=== PATIENT | male | born 1980 | race Caucasian/White ===

== ENCOUNTER 2024-11-14 07:21 | Emergency (ER) | payer OTHER, SELFPAY ==
[2024-11-14 07:35] VITALS: BP 148/88; PULSE 78; TEMP 36.6; O2SAT 99; BMI 21.8
--- NOTE | 2024-11-14 07:50 | XR_ITS ---
The [address] [address] Patient Name: BEATRIZ CHAMPION MRN: [id number] date: 1980 Sex: M Assigned Patient Location: ER Current Patient Location: ER Accession/Order Number: [id number] Exam Date: 11/14/2024 08:30 Report Date: 11/14/2024 08:33 At the request of: PRASANNA GILMORE MD Procedure: XR foot UMA 2V BILATERAL FEET - 2 views each COMPARISON: None CLINICAL DATA: Patient walked a lot yesterday and now has bilateral foot pain. AP and lateral views were obtained. No acute fractures or dislocation are noted. No focal soft tissue swelling is seen. XR/XR foot UMA 2V IMPRESSION: NO ACUTE BONY FINDINGS. Impression dictated by: Sherley Clifton M.D. 11/14/2024 8:33 AM Dictation Location: [place] [address] Electronically authenticated by: [id number] Y Date: 11/14/2024 08:33
[2024-11-14] MEDS: OXYCODONE HCL/ACETAMINOPHEN 5MG/325MG 1 TAB PO (08:07)
[2024-11-14] MEDS: KETOROLAC TROMETHAMINE 30 MG/ML VIAL IM (08:07)
--- NOTE | 2024-11-14 11:19 | ED_ITS ---
HPI - Extremity Problem General Chief complaint: Extremity Problem, Nontraumatic Stated complaint: lower extremity pain - feet Time Seen by Provider: 11/14/24 07:40 Source: patient Mode of arrival: walk-in History of Present Illness HPI Narrative: The patient is coming today with a bilateral foot pain that he had in the last few hours after he had to walk 27 miles after his car broke out, the patient mentioned that he had a previous surgeries in his calcaneus due to fracture and he is worried that he had some issues after all this walking He took some ibuprofen before arrival and it did not help his pain Related Data Previous Rx's ?Medication ?Instructions ?Recorded diclofenac sodium 75 mg 75 mg PO BID PRN pain #20 ta bs 11/14/24 tablet,delayed release Allergies Allergy/AdvReac Type Severity Reaction Status Date / Time No Known Drug Allergies Allergy Verified 11/14/24 07:40 Review of Systems ROS Status of ROS 10 or more systems reviewed and unremark able except as noted in history and below PFSH PFSH Social History Little interest or pleasure in doing things: not at all Feeling down, depressed, or hopeless: not at all Exam Narrative Exam Narrative: Nurses notes and vital signs reviewed and patient is not hypoxic. Lower extremity exam: The patient have tenderness upon palpation of the heel bilaterally but the patient have no redness no hotness no swelling and no ten derness on palpation of the bony prominences General: Well-appearing and in no apparent distress. Skin: Warm, dry, no pallor noted. No rash. Head: Normocephalic, atraumatic. Neck: Supple, non-tender. Cardiovascular: Regular Rate and Rhythm without murmur, gallop or rub. Respiratory: No accessory muscle use or respiratory distress. Lungs are clear to auscultation, no wheezing, rales or rhonchi Chest Wall: no tenderness Back: No midline thoracic or lumbar vertebral tenderness. No CVA tenderness GI: Abdomen is soft, non-distended. Normal bowel sounds. No masses appreciated. No tenderness to palpation. No rebound, guarding, or rigidity noted. Neurological: A&O x4. No cranial nerve dysfunction observed. No truncal ataxia. Moves all extremities. Sensation intact. Psychiatric: Cooperative and interactive. Normal mood and affect. Constitutional Vital Signs, click to edit/add: Last Vital Signs Temp 97.8 F 11/14/24 07:35 Pulse 78 11/14/24 07:35 Resp 18 11/14/24 07:35 BP 148/88 H 11/14/24 07:35 Pulse Ox 99 11/14/24 07:35 O2 Del Method Room Air 11/14/24 07:35 Course Vital Signs Vital signs: Vital Signs Temperature 97.8 F 11/14/24 07:35 Pulse Rate 78 11/14/24 07:35 Respiratory Rate 18 11/14/24 07:35 Blood Pressure 148/88 H 11/14/24 07:35 Pulse Oximetry 99 11/14/24 07:35 Oxygen Delivery Method Room Air 11/14/24 07:35 Temperature 97.8 F 11/14/24 07:35 Pulse Rate 78 11/14/24 07:35 Respiratory Rate 18 11/14/24 07:35 Blood Pressure 148/88 H 11/14/24 07:35 Pulse Oximetry 99 11/14/24 07:35 Oxygen Delivery Method Room Air 11/14/24 07:35 MDM - Extremity (Nontraumatic) MDM Narrative Medical decision making narrative: X-ray of the foot bilaterally showed no acute pathology Patient was discharged home with Voltaren for pain control after he was treated in the ER with Toradol He also was provided with 1 pill of Percocet here to help controlling his pain before getting discharged The patient is to follow up with primary care physician in next 2-3 days or to return to the emergency department should any of the signs or symptoms worsen or new symptoms develop. The patient agrees with the following Diagnosis and Treatment plan and the patient will be discharged home. Discharge Plan Discharge Chief Complaint: Extremity Problem, Nontraumatic Clinical Impression: Foot pain Qualifiers: Laterality: bilateral Qualified Code(s): M79.671 - Pain in right foot Patient Disposition: Home, Self-Care Time of Disposition Decision: 08:39 Condition: Good Mode of Transportation: Private Vehicle Prescriptions / Home Meds: New diclofenac sodium 75 mg tablet,delayed release (DR/EC) 75 mg PO BID PRN (Reason: pain) Qty: 20 0RF Print Language: Spanish Instructions: Arthralgia (ED) Referrals: Physician,Non-Staff, MD [Primary Care Provider] - 1 week Discharge Date/Time: 11/14/24 08:50
== END 2024-11-14 08:50 | disposition home or self-care (01) ==
PROVIDERS: Emergency Provider Emergency Medicine
DX: M79.671 Pain in right foot (principal); M79.672 Pain in left foot
CPT/HCPCS: 73620; 96372; 99284; J1885

== ENCOUNTER 2024-12-29 17:17 | Emergency (ER) | payer OTHER, SELFPAY ==
[2024-12-29 17:25] VITALS: BP 160/82; PULSE 73; TEMP 36.6; O2SAT 99; BMI 23.0
[2024-12-29] MEDS: PENICILLIN V POTASSIUM 250 MG TABLET 500 MG PO (18:04)
[2024-12-29] MEDS: OXYCODONE HCL/ACETAMINOPHEN 5MG/325MG 1 TAB PO ×2 (18:04)
--- NOTE | 2024-12-29 18:13 | ED.DENTAL1 ---
HPI - Dental/Oral General Chief complaint: Dental/Oral Stated complaint: DENTAL Time Seen by Provider: 12/29/24 17:28 Source: patient Mode of arrival: walk-in Limitations: no limitations History of Present Illness HPI Narrative: 44-year-old male to the emergency department chief complaint of left upper dental pain. He reports that he has bad teeth currently following up with dentistry. Pain suddenly became worse over the last 48 hours. He is concerned about dental infection. Related Data Home Medications ?Medication ?Instructions ?Recorded ?Confirmed esomeprazole magnesium 40 mg 40 mg PO BID 12/29/24 12/29/24 capsule,delayed release (Nexium) lisdexamfetamine 70 mg capsule 70 mg PO DAILY 12/29/24 12/29/24 (Vyvanse) lisinopril 40 mg tablet 40 mg PO DAILY 12/29/24 12/29/24 Previous Rx's ?Medication ?Instructions ?Recorded diclofenac sodium 75 mg 75 mg PO BID PRN pain #20 tabs 11/14/24 tablet,delayed release oxycodone-acetaminophen 5 mg-325 1 tab PO Q6H PRN pain 3 days #12 12/29/24 mg tablet (Percocet) tabs penicillin V potassium 500 mg 500 mg PO Q6H 7 days #28 tabs 12/29/24 tablet Allergies Allergy/AdvReac Type Severity Reaction Status Date / Time No Known Drug Allergies Allergy Verified 12/29/24 17:24 Review of Systems ROS Status of ROS 10 or more systems reviewed and unremarkable except as noted in history and below PFSH PFSH Social History Little interest or pleasure in doing things: not at all Feeling down, depressed, or hopeless: not at all Exam Narrative Exam Narrative: VITALS: I have reviewed the triage vital signs. GENERAL: Well developed, well appearing adult in no acute distress. NEURO: Alert and oriented. Moves all extremities. Face is symmetric and expressive. EYES: PERRL. No scleral icterus or conjunctival injection. No discharge. HENT: Normocephalic, atraumatic. Hearing is grossly intact. Nares grossly patent and without discharge. Mucous membranes moist. Generally poor dentition. What I believe is tooth #12 has significant decay, gingival erythema. No discrete abscess. NECK: No JVD. Patient moves neck without restriction. EXTREMITIES: Symmetric muscle bulk. No joint swelling. No clubbing, cyanosis, or deformity. SKIN: Warm and dry. Normal turgor. No rash or lesions appreciated. PSYCH: Mood, affect, and interaction is appropriate to the setting. Constitutional Vital Signs, click to edit/add: Last Vital Signs Temp 97.8 F 12/29/24 17:25 Pulse 73 12/29/24 17:25 Resp 14 12/29/24 17:25 BP 160/82 H 12/29/24 17:25 Pulse Ox 99 12/29/24 17:25 O2 Del Method Room Air 12/29/24 17:25 Course Vital Signs Vital signs: Vital Signs Temperature 97.8 F 12/29/24 17:25 Pulse Rate 73 12/29/24 17:25 Respiratory Rate 14 12/29/24 17:25 Blood Pressure 160/82 H 12/29/24 17:25 Pulse Oximetry 99 12/29/24 17:25 Oxygen Delivery Method Room Air 12/29/24 17:25 Temperature 97.8 F 12/29/24 17:25 Pulse Rate 73 12/29/24 17:25 Respiratory Rate 14 12/29/24 17:25 Blood Pressure 160/82 H 12/29/24 17:25 Pulse Oximetry 99 12/29/24 17:25 Oxygen Delivery Method Room Air 12/29/24 17:25 MDM - Dental/Oral MDM Narrative Medical decision making narrative: Patient with generally poor dentition. The tooth in question has had gingival erythema. He has a significant amount of discomfort. Percocet for pain. OARRS reviewed. Penicillin. Follow-up with his dentist. Patient agrees with this plan. Discharge Plan Discharge Chief Complaint: Dental/Oral Clinical Impression: Toothache Patient Disposition: Home, Self-Care Time of Disposition Decision: 17:54 Condition: Good Mode of Transportation: Private Vehicle Prescriptions / Home Meds: New penicillin V potassium 500 mg tablet 500 mg PO Q6H 7 Days Qty: 28 0RF oxycodone-acetaminophen [Percocet] 5-325 mg tablet 1 tab PO Q6H PRN (Reason: pain) 3 Days Qty: 12 0RF No Action diclofenac sodium 75 mg tablet,delayed release (DR/EC) 75 mg PO BID PRN (Reason: pain) Qty: 20 0RF lisinopril 40 mg tablet 40 mg PO DAILY esomeprazole magnesium [Nexium] 40 mg capsule,delayed release(DR/EC) 40 mg PO BID lisdexamfetamine [Vyvanse] 70 mg capsule 70 mg PO DAILY Print Language: Maltese Instructions: Toothache (ED), Opioid Safety (ED), Safe Disposal of Opioids (ED) Additional Instructions: Follow-up with your dentist as planned. Referrals: Physician,Non-Staff, MD [Primary Care Provider] - 1 week Discharge Date/Time: 12/29/24 18:08
== END 2024-12-29 18:08 | disposition home or self-care (01) ==
PROVIDERS: Emergency Provider Student in an Organized Health Care Education/Training Program
DX: K08.89 Other specified disorders of teeth and supporting structures (principal)
CPT/HCPCS: 99283

== ENCOUNTER 2025-01-27 13:08 | Emergency (ER) | payer OTHER, SELFPAY ==
[2025-01-27 13:30] VITALS: BP 148/85; PULSE 91; TEMP 37; O2SAT 99; BMI 21.6
--- NOTE | 2025-01-27 14:01 | ED.DENTAL1 ---
HPI - Dental/Oral General Chief complaint: Dental/Oral Stated complaint: DENTAL PAIN Time Seen by Provider: 01/27/25 13:33 Source: patient Mode of arrival: walk-in Limitations: no limitations History of Present Illness HPI Narrative: 44 year old male presents to the ED for upper dental pain. It has been an ongoing issue, worse the past few days. Tylenol and Motrin have not been helping. States his dentist appointment from last month had to be rescheduled. States he is to have all of his teeth extracted. Denies fever, chills, injury, SOB, difficulty swallowing. Related Data Home Medications ?Medication ?Instructions ?Recorded ?Confirmed esomeprazole magnesium 40 mg 40 mg PO BID 12/29/24 01/27/25 capsule,delayed release (Nexium) lisdexamfetamine 70 mg capsule 70 mg PO DAILY 12/29/24 01/27/25 (Vyvanse) lisinopril 40 mg tablet 40 mg PO DAILY 12/29/24 01/27/25 Previous Rx's ?Medication ?Instructions ?Recorded diclofenac sodium 75 mg 75 mg PO BID PRN pain #20 tabs 11/14/24 tablet,delayed release oxycodone-acetaminophen 5 mg-325 1 tab PO Q6H PRN pain 3 days #12 12/29/24 mg tablet (Percocet) tabs penicillin V potassium 500 mg 500 mg PO Q6H 7 days #28 tabs 12/29/24 tablet oxycodone-acetaminophen 5 mg-325 1 tab PO Q8H PRN pain 4 days #12 01/27/25 mg tablet (Percocet) tabs penicillin V potassium 500 mg 500 mg PO Q6H 10 days #40 tabs 01/27/25 tablet Allergies Allergy/AdvReac Type Severity Reaction Status Date / Time No Known Drug Allergies Allergy Verified 01/27/25 13:32 Review of Systems ROS Constitutional Denies: fever or chills Ears, nose, mouth, and throat Reports: mouth pain; Denies: throat pain Cardiovascular Denies: chest pain Respiratory Denies: shortness of breath Musculoskeletal Denies: neck pain Neurological Denies: headache or dizziness PFSH PFSH Social History Little interest or pleasure in doing things: not at all Feeling down, depressed, or hopeless: not at all Exam Constitutional Vital Signs, click to edit/add: Last Vital Signs Temp 98.6 F 09/01/25 13:30 Pulse 91 H 01/27/25 13:30 Resp 18 01/27/25 13:30 BP 148/85 H 01/27/25 13:30 Pulse Ox 99 01/27/25 13:30 O2 Del Method Room Air 01/27/25 13:30 HENMT Common normals: moist oral mucous membranes and oropharynx normal Face and sinus: face symmetric Mouth: lip normal and tongue normal Other: Dental caries throughout. Several missing teeth. Swelling to left upper gum tissue. No facial swelling appreciated at this time. No swelling to floor of mouth. Pt speaking in full sentences, handling secretions well. Eye Common normals: conjunctivae normal and no scleral icterus Neck & C-Spine Common normals: supple Chest Chest: symmetrical chest wall rise Respiratory Common normals: normal respiratory effort Effort & inspection: able to speak in complete sentences and symmetric chest movement Cardio Common normals: regular rate Neuro Common normals: oriented x3 and moves all extremities Sensorium/orientation: awake and alert Speech: speech normal Course Vital Signs Vital signs: Vital Signs Temperature 98.6 F 01/27/25 13:30 Pulse Rate 91 H 01/27/25 13:30 Respiratory Rate 18 01/27/25 13:30 Blood Pressure 148/85 H 01/27/25 13:30 Pulse Oximetry 99 01/27/25 13:30 Oxygen Delivery Method Room Air 01/27/25 13:30 Temperature 98.6 F 01/27/25 13:30 Pulse Rate 91 H 01/27/25 13:30 Respiratory Rate 18 01/27/25 13:30 Blood Pressure 148/85 H 01/27/25 13:30 Pulse Oximetry 99 01/27/25 13:30 Oxygen Delivery Method Room Air 01/27/25 13:30 MDM - Dental/Oral MDM Narrative Medical decision making narrative: OARRS was reviewed. Prescriptions were provided for PCN and Percocet. Follow up with the dentist later this month as scheduled. Return to ED if condition worsens. Differential Diagnosis Differential diagnosis: Likely gingival abscess, dental caries, toothache, dental abscess and fracture of tooth Medical Records Attestation: I reviewed the patient's medical records. Discharge Plan Discharge Chief Complaint: Dental/Oral Clinical Impression: Dental caries, Toothache Patient Disposition: Home, Self-Care Time of Disposition Decision: 13:57 Condition: Good Mode of Transportation: Private Vehicle Prescriptions / Home Meds: New penicillin V potassium 500 mg tablet 500 mg PO Q6H 10 Days Qty: 40 0RF oxycodone-acetaminophen [Percocet] 5-325 mg tablet 1 tab PO Q8H PRN (Reason: pain) 4 Days Qty: 12 0RF No Action diclofenac sodium 75 mg tablet,delayed release (DR/EC) 75 mg PO BID PRN (Reason: pain) Qty: 20 0RF lisinopril 40 mg tablet 40 mg PO DAILY esomeprazole magnesium [Nexium] 40 mg capsule,delayed release(DR/EC) 40 mg PO BID lisdexamfetamine [Vyvanse] 70 mg capsule 70 mg PO DAILY penicillin V potassium 500 mg tablet 500 mg PO Q6H 7 Days Qty: 28 0RF oxycodone-acetaminophen [Percocet] 5-325 mg tablet 1 tab PO Q6H PRN (Reason: pain) 3 Days Qty: 12 0RF Print Language: Guinean Instructions: Toothache (ED) Additional Instructions: Follow up with your dentist as scheduled. Return to the ER for worsening symptoms. Referrals: Physician,Non-Staff, MD [Primary Care Provider] - 1 week Discharge Date/Time: 01/27/25 14:10
== END 2025-01-27 14:10 | disposition home or self-care (01) ==
PROVIDERS: Emergency Provider Emergency Medicine
DX: K02.9 Dental caries, unspecified (principal); K08.89 Other specified disorders of teeth and supporting structures
CPT/HCPCS: 99283

== ENCOUNTER 2025-04-26 10:24 | Emergency (ER) | payer OTHER, SELFPAY ==
[2025-04-26 10:29] VITALS: BP 109/86; PULSE 74; TEMP 36.6; O2SAT 99; BMI 22.3
--- NOTE | 2025-04-26 10:56 | ED.DENTAL1 ---
HPI - Dental/Oral General Chief complaint: Dental/Oral Stated complaint: FACIAL & DENTAL PAIN Time Seen by Provider: 04/26/25 10:53 Source: patient Mode of arrival: walk-in Limitations: no limitations History of Present Illness HPI Narrative: cc -pain and drainage from left upper gumline Patient is missing numerous teeth has dental caries on the remaining teeth. It in area of the left upper gumline in which she has a residual step of the tooth he is having pain, swelling and some purulent discharge. Symptoms began about 5 days ago. He has not seen a dentist. He said that he is scheduled on May 14 to have removal of his remaining teeth and they will apparently apply dentures. Related Data Home Medications ?Medication ?Instructions ?Recorded ?Confirmed esomeprazole magnesium 40 mg 40 mg PO BID 12/29/24 01/27/25 capsule,delayed release (Nexium) lisdexamfetamine 70 mg capsule 70 mg PO DAILY 12/29/24 01/27/25 (Vyvanse) lisinopril 40 mg tablet 40 mg PO DAILY 12/29/24 01/27/25 Previous Rx's ?Medication ?Instructions ?Recorded diclofenac sodium 75 mg 75 mg PO BID PRN pain #20 tabs 11/14/24 tablet,delayed release oxycodone-acetaminophen 5 mg-325 1 tab PO Q6H PRN pain 3 days #12 12/29/24 mg tablet (Percocet) tabs penicillin V potassium 500 mg 500 mg PO Q6H 7 days #28 tabs 12/29/24 tablet oxycodone-acetaminophen 5 mg-325 1 tab PO Q8H PRN pain 4 days #12 01/27/25 mg tablet (Percocet) tabs penicillin V potassium 500 mg 500 mg PO Q6H 10 days #40 tabs 01/27/25 tablet clindamycin HCl 150 mg capsule 450 mg (3 x 150 mg) PO TID 7 days 04/26/25 #63 caps Allergies Allergy/AdvReac Type Severity Reaction Status Date / Time No Known Drug Allergies Allergy Verified 01/27/25 13:32 PFSH PFSH Social History Little interest or pleasure in doing things: not at all Feeling down, depressed, or hopeless: not at all Exam Narrative Exam Narrative: Vital signs reviewed. Patient is afebrile. General:The patient is comfortable, alert and oriented x3, well appearing, non toxic in no apparent distress. Head:Atraumatic and normocephalic. Eyes:Normal conjunctiva ENT:The oropharynx is normal. No pharyngeal erythema, uvular edema, tonsillar exudates, asymmetry or trismus. Uvula is midline. pain on percussion of the tooth #11 and widespread evidence of dental caries with numerous teeth missing. There is no evidence of facial asymmetry but there appears to be early abscess formation. Floor of the mouth is soft. No tenderness in the submental or submandibular space. No tongue elevation or deviation. The patient has no evidence of gingivitis or other acute pathology. Airway is patent. Neck:The neck demonstrates normal range of motion.No meningeals signs are present. No stridor.No masses or lymphandenopathy noted. Respiratory:No acute distress, lungs are clear to auscultation, no wheezing, rhonchi, or rales noted. No stridor or retractions are noted. Cardiovascular:Regular rate and rhythm Skin:The skin exam shows no evidence of rashes Neuro: Alert and oriented x4, normal speech Lymphatic:No cervical lymphadenopathy Constitutional Vital Signs, click to edit/add: Last Vital Signs Temp 98 F 04/26/25 10:29 Pulse 74 04/26/25 10:29 Resp 16 04/26/25 10:29 BP 109/86 04/26/25 10:29 Pulse Ox 99 04/26/25 10:29 O2 Del Method Room Air 04/26/25 10:29 Course Vital Signs Vital signs: Vital Signs Temperature 98 F 04/26/25 10:29 Pulse Rate 74 04/26/25 10:29 Respiratory Rate 16 04/26/25 10:29 Blood Pressure 109/86 04/26/25 10:29 Pulse Oximetry 99 04/26/25 10:29 Oxygen Delivery Method Room Air 04/26/25 10:29 Temperature 98 F 04/26/25 10:29 Pulse Rate 74 04/26/25 10:29 Respiratory Rate 16 04/26/25 10:29 Blood Pressure 109/86 04/26/25 10:29 Pulse Oximetry 99 04/26/25 10:29 Oxygen Delivery Method Room Air 04/26/25 10:29 MDM - Dental/Oral MDM Narrative Medical decision making narrative: The patient appears to have an infection along the gumline at one of the residual remaining teeth. Patient was ordered to receive dental paste here in the emergency department and was prescribed clindamycin to take at home. I instructed him to call his dentist when the office opens on Monday. ED return if he worsens. Discharge Plan Discharge Chief Complaint: Dental/Oral Clinical Impression: Dental caries, Toothache, Dental abscess Patient Disposition: Home, Self-Care Time of Disposition Decision: 11:00 Prescriptions / Home Meds: New clindamycin HCl 150 mg capsule 450 mg PO TID 7 Days Qty: 63 0RF No Action diclofenac sodium 75 mg tablet,delayed release (DR/EC) 75 mg PO BID PRN (Reason: pain) Qty: 20 0RF lisinopril 40 mg tablet 40 mg PO DAILY esomeprazole magnesium [Nexium] 40 mg capsule,delayed release(DR/EC) 40 mg PO BID lisdexamfetamine [Vyvanse] 70 mg capsule 70 mg PO DAILY penicillin V potassium 500 mg tablet 500 mg PO Q6H 7 Days Qty: 28 0RF oxycodone-acetaminophen [Percocet] 5-325 mg tablet 1 tab PO Q6H PRN (Reason: pain) 3 Days Qty: 12 0RF penicillin V potassium 500 mg tablet 500 mg PO Q6H 10 Days Qty: 40 0RF oxycodone-acetaminophen [Percocet] 5-325 mg tablet 1 tab PO Q8H PRN (Reason: pain) 4 Days Qty: 12 0RF Print Language: Greenlandic Instructions: Dental Abscess (ED), Toothache (ED) Referrals: Physician,Non-Staff, MD [Primary Care Provider] - 1 week
== END 2025-04-26 11:25 | disposition home or self-care (01) ==
PROVIDERS: Emergency Provider Emergency Medicine
DX: K02.9 Dental caries, unspecified (principal); K08.89 Other specified disorders of teeth and supporting structures; K04.7 Periapical abscess without sinus
CPT/HCPCS: 99283

== ENCOUNTER 2025-04-29 16:53 | Emergency (ER) | payer OTHER, SELFPAY ==
[2025-04-29 17:00] VITALS: BP 131/77; PULSE 87; TEMP 36.4; O2SAT 97; BMI 22.3
--- NOTE | 2025-04-29 17:13 | ED.GENADUL1 ---
HPI HPI - General Adult General Chief complaint: Dental/Oral Stated complaint: TOOTH PAIN/ WORSE THAN THIS PAST WEEKEND Time Seen by Provider: 04/29/25 16:54 Source: patient Mode of arrival: walk-in History of Present Illness HPI narrative: 45-year-old male presented to the emergency department for dental pain. He has been on an antibiotic and he states it is Keflex. He states it is making his stomach feel sick and he has been taking a lot of ibuprofen, 1600 to 1800 mg a day. He states he vomited and he saw a few small streaks of blood. He is scheduled on May 14, 2015 days from now, to have all of his teeth extracted. Related Data Home Medications ?Medication ?Instructions ?Recorded ?Confirmed esomeprazole magnesium 40 mg 40 mg PO BID 12/29/24 04/29/25 capsule,delayed release (Nexium) lisdexamfetamine 70 mg capsule 70 mg PO DAILY 12/29/24 04/29/25 (Vyvanse) lisinopril 40 mg tablet 40 mg PO DAILY 12/29/24 04/29/25 Previous Rx's ?Medication ?Instructions ?Recorded clindamycin HCl 150 mg capsule 450 mg (3 x 150 mg) PO TID 7 days 04/26/25 #63 caps acetaminophen 300 mg-codeine 30 mg 1 tab PO Q6H PRN pain 5 days #20 04/29/25 tablet tabs penicillin V potassium 250 mg 250 mg PO QID 10 days #40 tabs 04/29/25 tablet Allergies Allergy/AdvReac Type Severity Reaction Status Date / Time No Known Drug Allergies Allergy Verified 04/29/25 16:58 Opioid HPI Opioid Management Most Recent Opioid Data: Last Pain Scale 9 Today, 17:00 Review of Systems ROS Narrative A ten point review of systems is negative except as noted above. PFSH PFSH Social History Little interest or pleasure in doing things: not at all Feeling down, depressed, or hopeless: not at all Exam Narrative Exam Narrative: Nurses note and vital signs reviewed General:The patient appears well and in no apparent distress.Patient is resting comfortably on cart. Skin:Warm, dry, no pallor noted.There is no rash noted. Head:Normocephalic, atraumatic Eye: Normal conjunctiva, no drainage Ears, Nose, Mouth, and Throat: oral mucosa is moist. Nares patent. Dental condition is quite poor with many teeth missing and many eroded down to the gumline. No bleeding or pus present. No swelling to the floor of his mouth. Cardiovascular:Regular Rate and Rhythm Respiratory:Patient is in no distress, no accessory muscle use, lungs are clear to auscultation, no wheezing, rales or rhonchi Back:non-tender GI: Soft and nontender Musculoskeletal: The patient has no evidence of calf tenderness, no pitting edema, symmetrical pulses noted bilaterally Neurological:A&O, normal speech Psychiatric:Cooperative Constitutional Vital Signs, click to edit/add: Last Vital Signs Temp 97.5 F L 04/29/25 17:00 Pulse 87 04/29/25 17:00 Resp 16 04/29/25 17:00 BP 131/77 04/29/25 17:00 Pulse Ox 97 04/29/25 17:00 O2 Del Method Room Air 04/29/25 17:00 Course Vital Signs Vital signs: Vital Signs Temperature 97.5 F L 04/29/25 17:00 Pulse Rate 87 04/29/25 17:00 Respiratory Rate 16 04/29/25 17:00 Blood Pressure 131/77 04/29/25 17:00 Pulse Oximetry 97 04/29/25 17:00 Oxygen Delivery Method Room Air 04/29/25 17:00 Temperature 97.5 F L 04/29/25 17:00 Pulse Rate 87 04/29/25 17:00 Respiratory Rate 16 04/29/25 17:00 Blood Pressure 131/77 04/29/25 17:00 Pulse Oximetry 97 04/29/25 17:00 Oxygen Delivery Method Room Air 04/29/25 17:00 Medical Decision Making [facility] Narrative Medical decision making narrative: The patient reports he has done well on penicillin in the past. He is prescribed penicillin and Tylenol 3 and he will discontinue the ibuprofen for now. Treatment diagnosis and follow-up were discussed with the patient. Differential Diagnosis Differential Diagnosis: Dental caries, dental abscess Discharge Plan Discharge Chief Complaint: Dental/Oral Clinical Impression: Dental caries Patient Disposition: Home, Self-Care Time of Disposition Decision: 17:11 Condition: Good Mode of Transportation: Private Vehicle Prescriptions / Home Meds: New acetaminophen-codeine 300-30 mg tablet 1 tab PO Q6H PRN (Reason: pain) 5 Days Qty: 20 0RF penicillin V potassium 250 mg tablet 250 mg PO QID 10 Days Qty: 40 0RF No Action lisinopril 40 mg tablet 40 mg PO DAILY esomeprazole magnesium [Nexium] 40 mg capsule,delayed release(DR/EC) 40 mg PO BID lisdexamfetamine [Vyvanse] 70 mg capsule 70 mg PO DAILY clindamycin HCl 150 mg capsule 450 mg PO TID 7 Days Qty: 63 0RF Print Language: Cuban Instructions: Toothache (ED) Referrals: Physician,Non-Staff, MD [Primary Care Provider] - 1 week
== END 2025-04-29 17:23 | disposition home or self-care (01) ==
LOC: ER 17:16
PROVIDERS: Emergency Provider Emergency Medicine
DX: K02.9 Dental caries, unspecified (principal)
CPT/HCPCS: 99283